=== PATIENT | female | born 1985 ===

== ENCOUNTER 2023-03-17 12:03 | Emergency (ER) | payer BC ==
[2023-03-17] MEDS ORDERED: Lidocaine 1% 5 ML VIAL INJECT ONE (12:05)
[2023-03-17] MEDS ORDERED: Diphtheria,Pertussis(Acell),Tetanus Vaccine 0.5 ML Syringe IM ONE (12:15)
== END 2023-03-17 13:22 | disposition home or self-care (01) ==
LOC: MW.ED 12:03
DX: S61.012A Laceration without foreign body of left thumb without damage to nail, initial encounter (principal); Z91.013 Allergy to seafood; W26.8XXA Contact with other sharp object(s), not elsewhere classified, initial encounter
CPT/HCPCS: 12001; 99282; 99283; J3490